=== PATIENT | female | born 1995 | race Caucasian/White ===

== ENCOUNTER 2017-03-12 13:14 | Outpatient (CLI) | payer OTHER ==
--- NOTE | 2017-03-12 14:01 | XRAY Preliminary Report ---
Exam: XR ANKLE 3 VIEW RT IMPRESSION: Lateral soft tissue swelling, but no evidence of fracture. [facility] SITE ID: [id number]
--- NOTE | 2017-03-12 14:04 | XRAY Report ---
EXAM: RIGHT ANKLE RADIOGRAPHY EXAM DATE: 03/12/2017 01:41 PM. CLINICAL HISTORY: RIGHT ANKLE TRAUMA SPRAIN. COMPARISON: None. TECHNIQUE: 3 views. FINDINGS: Bones: Normal. No fractures or bone lesions. Joints: Normal. No effusion. No subluxations. The ankle mortise is normally aligned. Soft Tissues: Lateral soft tissue swelling. No foreign body. IMPRESSION: Lateral soft tissue swelling, but no evidence of fracture. [facility] Referring Provider Line: [phone] SITE ID: [id number]
== END 2017-03-12 13:15 | disposition home or self-care (01) ==
LOC: DI 13:14
PROVIDERS: ATTEND Family Medicine
DX: S93.401A Sprain of unspecified ligament of right ankle, initial encounter (principal)

== ENCOUNTER 2017-04-27 16:30 | Emergency (ER) | payer OTHER ==
[2017-04-27 16:41] VITALS: BP 171/97
[2017-04-27 16:59] LABS: BILIRUBIN,URINE SMALL (NEGATIVE); GLUCOSE, URINE (UA) NEGATIVE (NEGATIVE); KETONES,URINE (UA) NEGATIVE (NEGATIVE); LEUKOCYTE ESTERASE, URINE SMALL (NEGATIVE); NITRITE,URINE NEGATIVE (NEGATIVE); OCCULT BLOOD,URINE LARGE (NEGATIVE); PH,URINE 6.5 PH (5.0-7.5); PROTEIN,URINE 30 mg/dL (NEGATIVE); UROBILINOGEN,URINE 0.2 (NORMAL) E.U./dL (NORMAL)
[2017-04-27 17:03] LABS: CLARITY,URINE HAZY (CLEAR); HCG UR QUAL NEGATIVE
[2017-04-27] MEDS ORDERED: SODIUM CHLORIDE 0.9% 1,000 ML IV ONE ×2 (17:05)
[2017-04-27 17:06] LABS: BASOPHILS % (AUTO) 1.6 %; EOSINOPHILS % (AUTO) 1.2 %; HGB - HEMOGLOBIN 11.5 g/dL (12.0-16.0); LYMPHOCYTES % (AUTO) 39.5 %; MEAN CORPUSCULAR HEMOGLOBIN 22.5 pg (27.0-31.0); MEAN CORPUSCULAR HGB CONC 30.9 g/dL (32.0-36.0); MEAN CORPUSCULAR VOLUME 72.8 fL (81.0-99.0); MEAN PLATELET VOLUME 8.4 fL (7.9-10.8); MONOCYTES % (AUTO) 11.8 %; NEUTROPHILS % (AUTO) 45.9 %; PLT - PLATELET COUNT 279 10^3/uL (130-450); RED BLOOD COUNT 5.12 10^6/uL (4.20-5.40); RED CELL DISTRIBUTION WIDTH 16.6 % (12.0-15.0); WHITE BLOOD COUNT 5.7 x10^3/uL (4.8-10.8)
[2017-04-27] MEDS ORDERED: LORazepam 2 MG/ML VIAL IVP STA (17:07)
[2017-04-27 17:08] LABS: BACTERIA,URINE Few /HPF (None Seen); SQUAMOUS EPITHELIAL CELL,UR MANY Squamous (<= Few); WBC CLUMPS,URINE PRESENT
[2017-04-27 17:10] LABS: ABNORMAL LYMPHS % (MANUAL) 0 %
[2017-04-27 17:18] LABS: ALBUMIN 3.8 g/dL (3.2-5.5); ALBUMIN/GLOBULIN RATIO 1.1 (1.0-2.2); BILIRUBIN,TOTAL 0.4 mg/dL (0.2-1.0); CALCIUM 8.6 mg/dL (8.5-10.3); CREATININE 0.7 mg/dL (0.4-1.0); TOTAL PROTEIN 7.3 g/dL (6.7-8.2)
--- NOTE | 2017-04-27 17:19 | ED Physician Documentation ---
History of Present Illness - Stated complaint Stated Complaint: ABD PX/FACE NUMBNESS - Chief complaint Chief Complaint: Abd Pain - History obtained from History obtained from: Patient, Friend - History of Present Illness Timing: Today Pain level max: 7 Pain level now: 5 Improved by: nothing Worsened by: movement, palpation - Additonal information Additional information: Patient is a 21-year-old female who has a history of polycystic ovarian syndrome who states that she has had fevers intermittently for the past week also had low back pain earlier this week. Had severe abdominal pain today and states that her abdomen appeared to "purple and splotchy". Pain is now improving. No vomiting or diarrhea. No constipation. Also states that the front of her face is numb. Both sides. Review of Systems Ten Systems: 10 systems reviewed and negative Constitutional: denies: Fever, Chills Cardiac: denies: Chest pain / pressure Respiratory: denies: Cough GI: denies: Nausea, Vomiting, Diarrhea Skin: denies: Rash Musculoskeletal: denies: Neck pain, Back pain Neurologic: denies: Headache PD PAST MEDICAL HISTORY - Past Medical History Past Medical History: Yes Respiratory: Asthma - Past Surgical History Past Surgical History: Yes - Present Medications Home Medications: Ambulatory Orders Medication Instructions Recorded Confirmed Ciprofloxacin HCl [Cipro] 500 mg PO BID #20 tablet 04/27/17 - Allergies Allergies/Adverse Reactions: Allergies Allergy/AdvReac Type Severity Reaction Status Date / Time kiwi Allergy Unknown Verified 11/19/14 11:42 almonds Allergy Itching Uncoded 11/19/14 11:42 - Social History Does the pt smoke?: No Smoking Status: Never smoker Does the pt drink ETOH?: No Does the pt have substance abuse?: No - Immunizations Immunizations are current?: Yes PD ED PE NORMAL - Vitals Vital signs reviewed: Yes - General General: Alert and oriented X 3, No acute distress - HEENT HEENT: Moist mucous membranes - Neck Neck: Supple, no meningeal sign - Cardiac Cardiac: RRR - Respiratory Respiratory: No respiratory distress, Clear bilaterally - Abdomen Abdomen: Soft, Non distended, Other (mild diffuse TTP without peritoneal signs.) - Back Back: No CVA TTP, No spinal TTP - Derm Derm: Warm and dry, No rash - Extremities Extremities: No calf tenderness / cord - Neuro Neuro: Alert and oriented X 3 - Psych Psych: Normal mood, Normal affect Results - Vitals Vitals: Vital Signs - 24 hr 04/27/17 16:39 Temperature 36.6 C Heart Rate 125 H Respiratory 22 Rate Blood Pressure 171/97 H O2 Saturation 100 Oxygen O2 Source Room air - Labs Labs: Laboratory Tests 04/27/17 04/27/17 04/27/17 16:50 16:59 16:59 WBC 5.7 RBC 5.12 Hgb 11.5 L Hct 37.3 MCV 72.8 L MCH 22.5 L MCHC 30.9 L RDW 16.6 H Plt Count 279 MPV 8.4 Neut # Not Reportable Lymph # Not Reportable [place] # Not Reportable Eos # Not Reportable Baso # Not Reportable Absolute Nucleated RBC Not Reportable Total Counted 100 Band Neuts % (Manual) 4 Abnorm Lymph % (Manual) 0 Myelocytes % 1 H Nucleated RBC % Not Reportable Neutrophils # (Manual) 2.7 Lymphocytes # (Manual) 2.6 Monocytes # (Manual) 0.3 Eosinophils # (Manual) 0.1 Basophils # (Manual) 0.0 Differential Comment MANUAL DIFFERENTIAL Manual Slide Review Indicated Platelet Estimate NORMAL (130-450,000) Platelet Morphology NORMAL APPEARANCE RBC Morph Micro Appear 1+ POLYCHROMASIA Sodium 138 Potassium 3.0 L Chloride 103 Carbon Dioxide 24 Anion Gap 11.0 BUN 8 Creatinine 0.7 Estimated GFR (MDRD) 105 Glucose 110 H Calcium 8.6 Total Bilirubin 0.4 AST 45 H ALT 36 Alkaline Phosphatase 77 Total Protein 7.3 Albumin 3.8 Globulin 3.5 Albumin/Globulin Ratio 1.1 Lipase 17 L Urine Color YELLOW Urine Clarity HAZY Urine pH 6.5 Ur Specific [place] 1.020 Urine Protein 30 H Urine Glucose (UA) NEGATIVE Urine Ketones NEGATIVE Urine Occult Blood LARGE H Urine Nitrite NEGATIVE Urine Bilirubin SMALL H Urine Urobilinogen 0.2 (NORMAL) Ur Leukocyte Esterase SMALL H Urine RBC 6-10 H Urine WBC 11-25 H Urine WBC Clumps PRESENT Ur Squamous Epith Cells MANY Squamous H Urine Bacteria Few Ur Microscopic Review INDICATED Urine Culture Comments NOT INDICATED Urine HCG, Qual NEGATIVE PD MEDICAL DECISION MAKING - ED course Complexity details: reviewed results, re-evaluated patient, considered differential, d/w patient ED course: Patient is a 21-year-old female who presents to the emergency department with what appears to be anxiety and pyelonephritis. Ativan resolved her facial numbness and will place on antibiotics for the pyelonephritis. Given IV Rocephin here. Abdomen is soft, nontender nondistended on serial exam. She is well-appearing, nontoxic. Afebrile. Tolerating p.o. without difficulty. Patient counseled regarding signs and symptoms for which I believe and urgent re -evaluation would be necessary. Patient with good understanding of and agreement to plan and is comfortable going home at this time This document was made in part using voice recognition software. While efforts are made to proofread this document, sound alike and grammatical errors may occur. Departure - Departure Disposition: 01 Home, Self Care Clinical Impression: Pyelonephritis, Hypokalemia Condition: Good Instructions: ED Kidney Infec Female Follow-Up: Armando Mitchell MD [Primary Care Provider] - Within 1 week Prescriptions: Ciprofloxacin HCl [Cipro] 500 mg PO BID #20 tablet Comments: Take all antibiotics until gone. Return if you worsen. Discharge Date/Time: 04/27/17 18:28
[2017-04-27] MEDS ORDERED: POTASSIUM BICARB 25 MEQ TABLET PO STA (17:21)
[2017-04-27 17:34] LABS: BAND NEUTROPHILS % (MANUAL) 4 %; EOSINOPHILS # (MANUAL) 0.1 10^3/uL (0-0.7); LYMPHOCYTES # (MANUAL) 2.6 10^3/uL (1.5-3.5); LYMPHOCYTES % (MANUAL) 45 %; MONOCYTES # (MANUAL) 0.3 10^3/uL (0.0-1.0); MYELOCYTES % (MANUAL) 1 %; NEUTROPHILS # (MANUAL) 2.7 10^3/uL (1.5-6.6); NEUTROPHILS % (MANUAL) 43 %
[2017-04-27 17:35] LABS: DIFFERENTIAL COMMENT MANUAL DIFFERENTIAL; PLATELET ESTIMATE, MANUAL NORMAL (130-450,000) (NORMAL); PLATELET MORPHOLOGY NORMAL APPEARANCE (NORMAL)
[2017-04-27] MEDS ORDERED: cefTRIAXone 1 GM VIAL IVP STA (17:42)
== END 2017-04-27 18:28 | disposition home or self-care (01) ==
LOC: ED 16:30
DX: N12 Tubulo-interstitial nephritis, not specified as acute or chronic (principal); E87.6 Hypokalemia
CPT/HCPCS: 36415; 80053; 81001; 81025; 83690; 85025; 96374; 96375; 99283; A9270; J2060; 81003; 87086

== ENCOUNTER 2018-10-03 12:06 | Emergency (ER) | payer OTHER ==
[2018-10-03] MEDS ORDERED: ONDANSETRON 4 MG/2 ML VIAL IVP STA (12:19)
[2018-10-03] MEDS ORDERED: SODIUM CHLORIDE 0.9% 1,000 ML IV ONE (12:19)
--- NOTE | 2018-10-03 12:22 | ED Physician Documentation ---
PD HPI NVD - Stated complaint Stated Complaint: FEVER/V/D - Chief complaint Chief Complaint: Abd Pain - History obtained from History obtained from: Patient - History of Present Illness Timing - onset: How many days ago (3) Timing - duration: Days (3) Timing - details: Gradual onset (started with a cough and sore throat) Associated symptoms: Fever, Other (vomiting, nonbloody undigested food, sometimes bilious and diarrhea which is also nonbloody and watery). No: Abdominal pain Improved by: No: Eating Worsened by: Eating Similar symptoms before: Has not had sx before Recently seen: Not recently seen Review of Systems Ten Systems: 10 systems reviewed and negative Constitutional: reports: Fever Nose: reports: Rhinorrhea / runny nose, Congestion Throat: reports: Sore throat Cardiac: denies: Chest pain / pressure Respiratory: reports: Cough. denies: Dyspnea GI: reports: Nausea, Vomiting, Diarrhea. denies: Abdominal Pain, Hematemesis, Bloody / black stool Skin: denies: Rash Neurologic: denies: Generalized weakness, Focal weakness, Syncope, LOC PD PAST MEDICAL HISTORY - Past Medical History Past Medical History: Yes Respiratory: Asthma - Past Surgical History Past Surgical History: Yes - Present Medications Home Medications: Ambulatory Orders Medication Instructions Recorded Confirmed Ciprofloxacin HCl [Cipro] 500 mg PO BID #20 tablet 04/27/17 Loperamide [Imodium] 2 mg PO ONCE PRN #20 capsule 10/03/18 Ondansetron Odt [Zofran] 4 mg TL Q6H PRN #10 tablet 10/03/18 - Allergies Allergies/Adverse Reactions: Allergies Allergy/AdvReac Type Severity Reaction Status Date / Time kiwi Allergy Unknown Verified 11/19/14 11:42 almonds Allergy Itching Uncoded 11/19/14 11:42 - Social History Does the pt smoke?: No Smoking Status: Never smoker Does the pt drink ETOH?: No Does the pt have substance abuse?: No - Immunizations Immunizations are current?: Yes PD ED PE NORMAL - Vitals Vital signs reviewed: Yes - General General: Alert and oriented X 3, No acute distress - HEENT HEENT: Atraumatic - Neck Neck: Supple, no meningeal sign - Cardiac Cardiac: RRR, No murmur, No gallop, No rub - Respiratory Respiratory: No respiratory distress, Clear bilaterally - Abdomen Abdomen: Normal bowel sounds, Soft, Non tender, Non distended - Female Female : Deferred - Rectal Rectal: Deferred - Derm Derm: Normal color, Warm and dry, No rash - Extremities Extremities: No deformity - Neuro Neuro: Alert and oriented X 3 Eye Opening: Spontaneous Motor: Obeys Commands Verbal: Oriented GCS Score: 15 - Psych Psych: Normal mood, Normal affect Results - Vitals Vitals: Vital Signs - 24 hr 10/03/18 10/03/18 10/03/18 12:11 13:19 14:12 Temperature 37.5 C Heart Rate 134 H 85 98 Respiratory 18 20 18 Rate Blood Pressure 149/98 H 150/87 H 152/98 H O2 Saturation 100 100 99 10/03/18 15:17 Temperature Heart Rate 74 Respiratory 16 Rate Blood Pressure 131/78 H O2 Saturation 99 Oxygen O2 Source Room air PD MEDICAL DECISION MAKING - ED course Complexity details: re-evaluated patient, considered differential, d/w patient ED course: DDx - viral gastroenteritis, colitis, food poisoning, dysentery, appendicitis, diverticulitis, viral syndrome. 23 y/o F with nausea, vomiting, diarrhea, congestion, cough, sore throat. Soft nontender abdomen but per pt unable to control nausea, vomiting and diarrhea. Nonbloody stool and vomit. No fever here but reports temp of 101 at home. No risk factors -no travel, antibiotics, hospitalizations, pt not immunocompromised. She was given fluids, antiemetics and imodium here and is now tolerating fluids. She did get anxious after compazine thus was given a dose of compazine. Now is feeling markedly improved. Her HR on recheck by me and nurse is 84 though nurse did not record it in the chart. Doubt significant bacterial illness given benign abdomen and lack of risk factors. No abdominal tenderness to suggest appendicitis or diverticulitis. Pt to continue supportive care at home with antiemetics and antidiarrheals. I do not feel that emergent imaging or labs or antibiotics are indicated at this time. Departure - Departure Disposition: 01 Home, Self Care Clinical Impression: Gastroenteritis Condition: Stable Record reviewed to determine appropriate education?: Yes Instructions: ED Gastroenteritis Viral Follow-Up: LOPEZ GIRARD MD [Primary Care Provider] - Prescriptions: Loperamide [Imodium] 2 mg PO ONCE PRN #20 capsule PRN Reason: Diarrhea Ondansetron Odt [Zofran] 4 mg TL Q6H PRN #10 tablet PRN Reason: Nausea / Vomiting Comments: You likely have viral gastroenteritis. Replace fluid losses with electrolyte rich fluids. Take zofran as needed for nausea/vomiting and imodium as needed for diarrhea. Return to the ED if worsening or inability to tolerate any fluids. Discharge Date/Time: 10/03/18 15:18
[2018-10-03] MEDS ORDERED: LOPERAMIDE 2 MG CAPSULE PO STA (13:13)
[2018-10-03] MEDS ORDERED: PROCHLORPERAZINE 10 MG/2 ML VIAL IVP STA (13:50)
[2018-10-03] MEDS ORDERED: diphenhydrAMINE INJ 50 MG/ML VIAL IVP STA (14:15)
[2018-10-03 15:18] VITALS: BP 131/78
== END 2018-10-03 15:18 | disposition home or self-care (01) ==
LOC: ED 12:06
DX: A08.4 Viral intestinal infection, unspecified (principal); J45.909 Unspecified asthma, uncomplicated
CPT/HCPCS: 96361; 96374; 96375; 99283; A9270; J1200

== ENCOUNTER 2018-11-23 11:35 | Emergency (ER) | payer OTHER ==
[2018-11-23] MEDS ORDERED: LORazepam 2 MG/ML VIAL IVP STA (12:29)
--- NOTE | 2018-11-23 12:32 | ED Physician Documentation ---
PD HPI FOCAL NEURO - Stated complaint Stated Complaint: SLURRED WORDS - Chief complaint Chief Complaint: General - History obtained from History obtained from: Patient - History of Present Illness Timing - onset: Yesterday (23-year-old woman with a family history of what sounds like multiple members with young dissections presents with speech difficulty since yesterday morning around 9 AM. She describes difficulty thinking and talking. Numbness to the back of the head and bilateral arm weakness with occasional forearm cramping. There is no possibility of . She denies any trouble with her legs. There is no significant headache.) Review of Systems Ten Systems: 10 systems reviewed and negative Constitutional: denies: Fever, Chills Cardiac: reports: Chest pain / pressure (Mild intermittent and not new). denies: Palpitations Respiratory: denies: Dyspnea, Cough GI: denies: Abdominal Pain, Nausea, Vomiting PD PAST MEDICAL HISTORY - Past Medical History Respiratory: Asthma - Past Surgical History Past Surgical History: Yes - Present Medications Home Medications: Ambulatory Orders Medication Instructions Recorded Confirmed Ciprofloxacin HCl [Cipro] 500 mg PO BID #20 tablet 04/27/17 Loperamide [Imodium] 2 mg PO ONCE PRN #20 capsule 10/03/18 Ondansetron Odt [Zofran] 4 mg TL Q6H PRN #10 tablet 10/03/18 - Allergies Allergies/Adverse Reactions: Allergies Allergy/AdvReac Type Severity Reaction Status Date / Time kiwi Allergy Unknown Verified 11/23/18 11:43 prochlorperazine AdvReac Unknown Verified 11/23/18 12:58 [From Compazine] almonds Allergy Itching Uncoded 11/23/18 11:43 - Social History Does the pt smoke?: No Smoking Status: Never smoker Does the pt drink ETOH?: No Does the pt have substance abuse?: No - Family History Family history: reports: Non contributory - Immunizations Immunizations are current?: Yes PD ED PE NORMAL - Vitals Vital signs reviewed: Yes - General General: Alert and oriented X 3, Other (Anxious, stuttering speech without dysphonia or actual aphasia per se.) - HEENT HEENT: PERRL, EOMI - Neck Neck: Supple, no meningeal sign, No bony TTP - Cardiac Cardiac: RRR, No murmur - Respiratory Respiratory: No respiratory distress, Clear bilaterally - Abdomen Abdomen: Normal bowel sounds, Soft, Non tender - Derm Derm: Normal color, Warm and dry - Extremities Extremities: No edema, No calf tenderness / cord - Neuro Neuro: Alert and oriented X 3, 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 Eye Opening: Spontaneous Motor: Obeys Commands Verbal: Oriented GCS Score: 15 - Psych Psych: Normal mood, Normal affect NIHSS - Time Time: 12:20 - Level of Consciousness Level of consciousness: (0) Alert, Keenly responsive LOC Questions: (0) Answers both Q's correct LOC Commands: (0) Performs both correctly - Gaze Best Gaze: (0) Normal - Visual Visual: (0) No loss - Facial Palsy Facial Palsy: (0) Normal, symmetrical movement - Motor Arms (both separate) Motor Arm (right): (1) Drift Motor Arm (left): (1) Drift - Motor Legs (both separate) Motor Leg (right): (0) No drift Motor Leg (left): (0) No drift - Limb Ataxia Limb Ataxia: (0) Absent - Sensory Sensory: (0) Normal - Best Language Best Language: (1) [id number] (More of a stuttering and slow speech than an actual aphasia.) - Dysarthria Dysarthria: (0) Normal - Extinction and Inattention (formally neg Extinction and inattention: (0) No abnormality - Total Score/Results Total Score/Result: 3 Results - Vitals Vitals: Vital Signs - 24 hr 11/23/18 11:38 Temperature 36.7 C Heart Rate 116 H Respiratory 25 H Rate Blood Pressure 188/111 H O2 Saturation 98 Oxygen O2 Source Room air - Labs Labs: Laboratory Tests 11/23/18 11/23/18 11/23/18 12:45 12:45 12:45 WBC 12.6 H RBC 5.22 Hgb 12.0 Hct 39.7 MCV 76.1 L MCH 23.0 L MCHC 30.2 L RDW 18.3 H Plt Count 369 MPV 11.0 H Neut # (Auto) 9.1 H Lymph # (Auto) 2.3 [place] # (Auto) 1.0 Eos # (Auto) 0.1 Baso # (Auto) 0.1 Absolute Nucleated RBC 0.00 Nucleated RBC % 0.0 VBG pH 7.455 H VBG pCO2 33.5 L VBG pO2 54.8 H VBG HCO3 23.0 VBG Total CO2 24.1 VBG O2 Saturation 89.9 H VBG Base Excess -0.3 Sodium 138 Potassium 4.1 Chloride 103 Carbon Dioxide 23 Anion Gap 12.0 BUN 5 L Creatinine 0.6 Estimated GFR (MDRD) 123 Glucose 114 H Calcium 9.3 Total Bilirubin 0.4 AST 35 ALT 28 Alkaline Phosphatase 85 Total Protein 7.6 Albumin 3.6 Globulin 4.0 Albumin/Globulin Ratio 0.9 L Lipase 20 L Ur Specific [place] Urine HCG, Qual Urine Opiates Screen Ur Oxycodone Screen Urine Methadone Screen Ur Propoxyphene Screen Ur Barbiturates Screen Ur Tricyclics Screen Ur Phencyclidine Scrn Ur Amphetamine Screen U Methamphetamines Scrn U Benzodiazepines Scrn Urine Cocaine Screen U Cannabinoids Screen 11/23/18 11/23/18 14:33 14:33 WBC RBC Hgb Hct MCV MCH MCHC RDW Plt Count MPV Neut # (Auto) Lymph # (Auto) [place] # (Auto) Eos # (Auto) Baso # (Auto) Absolute Nucleated RBC Nucleated RBC % VBG pH VBG pCO2 VBG pO2 VBG HCO3 VBG Total CO2 VBG O2 Saturation VBG Base Excess Sodium Potassium Chloride Carbon Dioxide Anion Gap BUN Creatinine Estimated GFR (MDRD) Glucose Calcium Total Bilirubin AST ALT Alkaline Phosphatase Total Protein Albumin Globulin Albumin/Globulin Ratio Lipase Ur Specific [place] <=1.005 Urine HCG, Qual NEGATIVE Urine Opiates Screen NEGATIVE Ur Oxycodone Screen NEGATIVE Urine Methadone Screen NEGATIVE Ur Propoxyphene Screen NEGATIVE Ur Barbiturates Screen NEGATIVE Ur Tricyclics Screen NEGATIVE Ur Phencyclidine Scrn NEGATIVE Ur Amphetamine Screen NEGATIVE U Methamphetamines Scrn NEGATIVE U Benzodiazepines Scrn POSITIVE H Urine Cocaine Screen NEGATIVE U Cannabinoids Screen POSITIVE H PD MEDICAL DECISION MAKING - ED course ED course: 23-year-old woman with word finding difficulties, stuttering speech, and bilateral arm weakness associated with cramping and flexor posture occasionally of the forearms, this is most consistent with a psychosomatic/anxiety component. She has a strong family history for dissections though. Advanced imaging was done with CT angiography of the head neck without pertinent positive findings. She had some improvement after Ativan and complete improvement after Haldol over although she did have some akathisia with Haldol which was treated with Benadryl. On reexamination at 4 PM prior to discharge her speech was completely normal as was her strength in both upper extremities and she felt back to normal. Departure - Departure Disposition: 01 Home, Self Care Clinical Impression: Arm weakness, Difficulty with speech Condition: Good Record reviewed to determine appropriate education?: Yes Instructions: ED Weakness [facility]O Comments: As discussed the pattern of the symptoms and the resolution with medications is most consistent with a psychosomatic episode. Return for any new or worsening symptoms. If symptoms are recurrent or persistent talk with your doctor about neurology and psychology referrals. Your blood pressure was elevated today on check into the emergency department. This does not mean that you have hypertension, it is a common phenomenon to come to the emergency department and have elevated blood pressure. I recommend that you see your primary care physician within the week to have it rechecked when you are feeling better. Forms: Activity restrictions
[2018-11-23] MEDS ORDERED: IOVERSOL 320 100 ML VIAL IVP ONE ×2 (12:43→16:37)
[2018-11-23 12:52] LABS: BASOPHILS # (AUTO) 0.1 10^3/uL (0.0-0.1); BASOPHILS % (AUTO) 0.4 %; EOSINOPHILS # (AUTO) 0.1 10^3/uL (0.0-0.7); EOSINOPHILS % (AUTO) 0.8 %; LYMPHOCYTES # (AUTO) 2.3 10^3/uL (1.5-3.5); MEAN CORPUSCULAR HGB CONC 30.2 g/dL (32.0-36.0); MEAN CORPUSCULAR VOLUME 76.1 fL (81.0-99.0); MONOCYTES % (AUTO) 7.8 %; NEUTROPHILS # (AUTO) 9.1 10^3/uL (1.5-6.6); NEUTROPHILS % (AUTO) 72.4 %; PLT - PLATELET COUNT 369 10^3/uL (130-450); RED BLOOD COUNT 5.22 10^6/uL (4.20-5.40); RED CELL DISTRIBUTION WIDTH 18.3 % (12.0-15.0); WHITE BLOOD COUNT 12.6 x10^3/uL (4.8-10.8)
[2018-11-23 12:53] LABS: VBG PCO2 33.5 mmHg (41-51); VBG PH 7.455 (7.31-7.41); VBG PO2 54.8 mmHg (25-47); VBG TOTAL CO2 24.1 mmol/L (24-29)
[2018-11-23 12:54] LABS: VBG BASE EXCESS -0.3 mmol/L (-2 - +2)
[2018-11-23 13:12] LABS: ALBUMIN 3.6 g/dL (3.2-5.5); ALBUMIN/GLOBULIN RATIO 0.9 (1.0-2.2); BILIRUBIN,TOTAL 0.4 mg/dL (0.2-1.0); CALCIUM 9.3 mg/dL (8.5-10.3); CREATININE 0.6 mg/dL (0.4-1.0); TOTAL PROTEIN 7.6 g/dL (6.7-8.2)
[2018-11-23] MEDS ORDERED: HALOPERIDOL 5 MG/ML VIAL IVP ONE (14:20)
--- NOTE | 2018-11-23 14:44 | CT Report ---
Reason: Fam hx young dissections, CP, weak, aphasia Procedure Date: 11/23/2018 Accession Number: [id number] / [id number] Procedure: CT - ANGIO HEAD W/WO CPT Code: FULL RESULT: EXAM: CT ANGIOGRAM HEAD. CT SCAN OF THE HEAD WITHOUT AND WITH CONTRAST. EXAM DATE: 11/23/2018 01:49 PM CLINICAL HISTORY: Chest pain, weakness and aphasia. COMPARISON: NECK ANGIO 11/23/2018 1:40 PM. TECHNIQUE: - CT Scan Head: Using a multidetector scanner, axial images were acquired from the foramen magnum to the skull vertex prior to and following contrast administration. - CT Angiogram: Using a multidetector scanner, high-resolution axial images were acquired from the skull base through vertex following rapid infusion of intravenous contrast. Reformats: Multiplanar MIP reformats were reconstructed. Nascet criteria used for stenosis measurement. IV Contrast: Optiray 320 80ML. In accordance with CT protocol optimization, one or more of the following dose reduction techniques were utilized for this exam: automated exposure control, adjustment of mA and/or KV based on patient size, or use of iterative reconstructive technique. FINDINGS: Brain CT without contrast: Unremarkable CT appearance of the brain. No evidence for atrophy, hydrocephalus, hemorrhage, stroke or mass. Intact calvarium. No acute sinus or mastoid disease. Brain CT with IV contrast: No abnormal enhancement. Head CT angiogram: No CTA evidence of intracranial large artery flow-limiting stenosis, occlusion or filling defect. Patent anterior communicating artery and posterior communicating arteries. No evidence for cerebral aneurysm or major dural venous sinus thrombus. IMPRESSION: CT Head: No acute intracranial abnormality. Specifically, no evidence of acute infarct, hemorrhage, or mass lesion. No abnormal enhancement. CTA Head: Normal CTA of the head. No significant vascular stenosis, dissection, or aneurysm. Note: These findings do not preclude the possibility of small or acute ischemic infarct for which a brain MRI is more sensitive. [facility]
--- NOTE | 2018-11-23 14:56 | CT Report ---
Reason: Fam hx young dissections, CP, weak, aphasia Procedure Date: 11/23/2018 Accession Number: [id number] / [id number] Procedure: CT - ANGIO NECK W CPT Code: FULL RESULT: EXAM: CT ANGIOGRAM NECK EXAM DATE: 11/23/2018 01:49 PM. CLINICAL HISTORY: Chest pain, weakness and aphasia. Reported family history of "dissection." COMPARISON: None. TECHNIQUE: Routine axial helical imaging was performed from the skull base through the aortic arch. Reconstructions: Routine multiplanar 3D MIP reconstructions. IV Contrast: Optiray 320 80ML. Evaluation of arterial stenosis is based on a NASCET method of measurement. In accordance with CT protocol optimization, one or more of the following dose reduction techniques were utilized for this exam: automated exposure control, adjustment of mA and/or KV based on patient size, or use of iterative reconstructive technique. FINDINGS: The origins of the great vessels are patent. No proximal subclavian artery stenosis. Normal CT appearance of the cervical vertebral and carotid arteries. No evidence for acute abnormality, stenosis or atherosclerosis. No evidence for dissection or aneurysm. IMPRESSION: Normal neck CT angiogram. No hemodynamically significant stenoses. [facility]
[2018-11-23 14:57] LABS: MUDS CUTOFF CONCENTRATIONS CUTOFF CONC BELOW:
[2018-11-23] MEDS ORDERED: diphenhydrAMINE INJ 50 MG/ML VIAL IVP STA (15:02)
[2018-11-23 15:10] LABS: HCG UR QUAL NEGATIVE
[2018-11-23 15:11] LABS: AMPHETAMINE SCREEN,URINE NEGATIVE (NEGATIVE); BENZODIAZEPINES SCREEN, URINE POSITIVE (NEGATIVE); COCAINE SCREEN URINE NEGATIVE (NEGATIVE); METHADONE SCREEN, URINE NEGATIVE (NEGATIVE); METHAMPHETAMINES SCREEN, URINE NEGATIVE (NEGATIVE); OPIATE SCREEN, URINE NEGATIVE (NEGATIVE); OXYCODONE SCREEN, URINE NEGATIVE (NEGATIVE); PROPOXYPHENE SCREEN, URINE NEGATIVE (NEGATIVE); TRICYCLIC ANTIDEPRESSANT,URINE NEGATIVE (NEGATIVE)
[2018-11-23 16:23] VITALS: BP 146/95
== END 2018-11-23 16:04 | disposition home or self-care (01) ==
LOC: ED 11:35
DX: R47.89 Other speech disturbances (principal); R29.898 Other symptoms and signs involving the musculoskeletal system; R25.2 Cramp and spasm; G25.71 Drug induced akathisia; T43.4X5A Adverse effect of butyrophenone and thiothixene neuroleptics, initial encounter; Y92.538 Other ambulatory health services establishments as the place of occurrence of the external cause; R03.0 Elevated blood-pressure reading, without diagnosis of hypertension; Z82.49 Family history of ischemic heart disease and other diseases of the circulatory system
CPT/HCPCS: 36415; 70496; 70498; 80053; 81025; 82803; 83690; 85025; 96374; 96375; 99284; J1200; J2060; Q9967; 80306

== ENCOUNTER 2020-07-09 16:40 | Outpatient (CLI) | payer OTHER | END 2020-07-09 16:41 | disposition critical access hospital (66) | LOC: EMS 16:40 | PROVIDERS: ATTEND Registered Nurse | DX: R56.9 Unspecified convulsions (principal) | CPT/HCPCS: A0425; A0429 ==

== ENCOUNTER 2020-07-09 16:59 | Emergency (ER) | payer OTHER ==
[2020-07-09] MEDS ORDERED: SODIUM CHLORIDE 0.9% 1,000 ML IV STA (17:19)
--- NOTE | 2020-07-09 17:21 | ED Physician Documentation ---
History of Present Illness - Stated complaint Stated Complaint: SZ - Chief complaint Chief Complaint: Neuro - Additonal information Additional information: 24-year-old female presents the emergency department for evaluation of a reported seizure at home. This afternoon she had a general tonic seizure that lasted 2 to 3 minutes. There is a very brief postictal phase followed by a repeat seizure that lasted again 2 to 3 minutes. Patient states that on average she has these episodes once a week and has for many many years. She has never been on any antiepileptics. In the past she has been seen by Dr. Long a neurologist through [place] and the [facility]. He had in the past ordered an MRI with and without contrast. Results of that are unknown. The patient did see her primary care provider yesterday and was again referred to neurology. Patient reports that her doctors have told her she is not having seizures but is rather having migraines which she does not believe to be true. Patient reports that after these shaking episodes she speaks in stuttering halted words and often has bilateral arm and leg weakness for a few days. That is present at this time. Medications: Albuterol, Alvesco. Patient denies alcohol drug or tobacco use. Review of Systems Constitutional: denies: Fever, Chills Eyes: denies: Loss of vision, Decreased vision Ears: reports: Reviewed and negative Nose: reports: Reviewed and negative Throat: reports: Reviewed and negative Cardiac: reports: Reviewed and negative Respiratory: reports: Reviewed and negative GI: reports: Reviewed and negative : reports: Reviewed and negative Skin: reports: Reviewed and negative Musculoskeletal: reports: Reviewed and negative Neurologic: reports: Seizure PD PAST MEDICAL HISTORY - Past Medical History Respiratory: Asthma - Past Surgical History Past Surgical History: Yes - Present Medications Home Medications: Ambulatory Orders Medication Instructions Recorded Confirmed Ciprofloxacin HCl [Cipro] 500 mg PO BID #20 tablet 04/27/17 Loperamide [Imodium] 2 mg PO ONCE PRN #20 capsule 10/03/18 Ondansetron Odt [Zofran] 4 mg TL Q6H PRN #10 tablet 10/03/18 - Allergies Allergies/Adverse Reactions: Allergies Allergy/AdvReac Type Severity Reaction Status Date / Time kiwi Allergy Unknown Verified 11/23/18 11:43 metformin Allergy Unknown Verified 07/09/20 17:06 prochlorperazine AdvReac Unknown Verified 11/23/18 12:58 [From Compazine] almonds Allergy Itching Uncoded 11/23/18 11:43 - Social History Does the pt smoke?: No Smoking Status: Never smoker Does the pt drink ETOH?: No Does the pt have substance abuse?: No - Immunizations Immunizations are current?: Yes PD ED PE EXPANDED - General General: Alert, No acute distress, Well developed/nourished - HEENT HEENT: Other (Unable to track movement with eyes) - Eyes Eyes: PERRL, Normal accommodation - Neck Neck: No: Stiff neck, Adenopathy - Cardiac Cardiac: Regular Rate, Radial strong equal, Pedal strong equal, Cap refill < 2 sec - Respiratory Respiratory: Clear to ausultation rosi. No: Distress, Labored - Abdomen Abdomen: Normal Bowel sounds. No: Tender to palpation - Derm Derm: Normal color. No: Emboli, Bruising - Extremities Extremities: Normal, Other (Generalized weakness bilateral upper and lower extremities able to raise arms and legs off bed but not against resistance.). No: Deformity, Tenderness - Neuro Neuro: Alert and Oriented X 3, CNII-XII intact. No: Normal Speech (Stuttered halting speech.), Normal speech - GCS Eye Opening: Spontaneous Motor: Obeys Commands Verbal: Oriented Total: 15 Results - Vitals Vitals: Vital Signs - 24 hr 07/09/20 07/09/20 17:06 19:29 Temperature 37.5 C Heart Rate 125 H 97 Respiratory 20 18 Rate Blood Pressure 167/97 H 143/94 H O2 Saturation 100 99 Oxygen O2 Source Room air - Labs Labs: Laboratory Tests 07/09/20 07/09/20 07/09/20 17:31 17:31 17:31 WBC 11.6 H RBC 4.98 Hgb 12.8 Hct 41.1 MCV 82.5 MCH 25.7 L MCHC 31.1 L RDW 14.7 Plt Count 305 MPV 10.2 Neut # (Auto) 8.6 H Lymph # (Auto) 1.9 Holmes # (Auto) 0.9 Eos # (Auto) 0.1 Baso # (Auto) 0.1 Absolute Nucleated RBC 0.00 Nucleated RBC % 0.0 Sodium 135 Potassium 3.0 L Chloride 101 Carbon Dioxide 24 Anion Gap 10.0 BUN 9 Creatinine 0.7 Estimated GFR (MDRD) 102 Glucose 149 H Lactic Acid Calcium 8.7 Total Bilirubin 0.6 AST 27 ALT 27 Alkaline Phosphatase 70 Total Protein 6.9 Albumin 3.6 Globulin 3.3 Albumin/Globulin Ratio 1.1 Lipase 24 Serum HCG, Qual NEGATIVE Urine Opiates Screen Ur Oxycodone Screen Urine Methadone Screen Ur Propoxyphene Screen Ur Barbiturates Screen Ur Tricyclics Screen Ur Phencyclidine Scrn Ur Amphetamine Screen U Methamphetamines Scrn U Benzodiazepines Scrn Urine Cocaine Screen U Cannabinoids Screen 07/09/20 07/09/20 18:35 19:31 WBC RBC Hgb Hct MCV MCH MCHC RDW Plt Count MPV Neut # (Auto) Lymph # (Auto) Holmes # (Auto) Eos # (Auto) Baso # (Auto) Absolute Nucleated RBC Nucleated RBC % Sodium Potassium Chloride Carbon Dioxide Anion Gap BUN Creatinine Estimated GFR (MDRD) Glucose Lactic Acid 1.7 Calcium Total Bilirubin AST ALT Alkaline Phosphatase Total Protein Albumin Globulin Albumin/Globulin Ratio Lipase Serum HCG, Qual Urine Opiates Screen NEGATIVE Ur Oxycodone Screen NEGATIVE Urine Methadone Screen NEGATIVE Ur Propoxyphene Screen NEGATIVE Ur Barbiturates Screen NEGATIVE Ur Tricyclics Screen NEGATIVE Ur Phencyclidine Scrn NEGATIVE Ur Amphetamine Screen NEGATIVE U Methamphetamines Scrn NEGATIVE U Benzodiazepines Scrn NEGATIVE Urine Cocaine Screen NEGATIVE U Cannabinoids Screen NEGATIVE - Rads (name of study) CT head Radiology: Final report received (No acute intracranial finding) PD MEDICAL DECISION MAKING - ED course Complexity details: reviewed results, re-evaluated patient, considered differential, d/w patient ED course: 24 year old female presents to the ED with reported 2 seizure episodes today. Both 2-3 minutes, desccribed as tonic clonic. She is currently with weakness if all 4 extremities and halting stuttered speech which she reports is normal after her episodes and can last 1-3 days. Previously seen by Dr. Long at [facility]. He had recommended NRI in the past, unclear if these images have been completed. Pt screening labs unremarkable sparing hypokalemia. Potassium supplemented. CT head without acute intracranial abnormality. 1644: I spoke with Dr. Crespo neurologist at [facility]. He does recommend pt to have MRI and possible observation, unfortunately he is not able to have pt admitted to [facility]. Will call transfer [facility]/ [place] to help arrange consultation and possibel transfer. PT emains stable. her speech and upper extermity weakness is improving 1999: I have spoken with the [place] transfer physician and he is looking for a bed. However when I was discussing plan of care with patient and she reported that she is feeling better and she no longer wishes to be transferred for further evaluation of her seizure-like disorder. She is requesting to be discharged home and feels that she will try and follow-up with neurology as an outpatient. We discussed that she is free to return to the emergency department at any time especially she has a recurrence of the seizures. No new medications will be initiated today. Emergent return precautions were discussed Departure - Departure Disposition: Home, Self Care Clinical Impression: Seizure-like activity Condition: Stable Record reviewed to determine appropriate education?: Yes Comments: You were seen today for reported seizure-like activity at home. In discussing your case with your previous neurologist the MRI that was done did not show any worrisome findings. The CT scan today was essentially normal as well as your screening labs and electrolytes. The only abnormality was a low potassium level for which we gave you potassium here in the ER. Your primary doctor yesterday made a referral for you to the neurologist. It is important to call them tomorrow to discuss this ED visit and request a sooner appointment. If at any point you have a return of your seizure activity, feel unsafe or feel that your symptoms are occurring with increased frequency please return to the ER for a second evaluation
[2020-07-09 17:41] LABS: BASOPHILS # (AUTO) 0.1 10^3/uL (0.0-0.1); BASOPHILS % (AUTO) 0.5 %; EOSINOPHILS # (AUTO) 0.1 10^3/uL (0.0-0.7); EOSINOPHILS % (AUTO) 0.7 %; HCT - HEMATOCRIT 41.1 % (37.0-47.0); HGB - HEMOGLOBIN 12.8 g/dL (12.0-16.0); LYMPHOCYTES # (AUTO) 1.9 10^3/uL (1.5-3.5); LYMPHOCYTES % (AUTO) 16.7 %; MEAN CORPUSCULAR HEMOGLOBIN 25.7 pg (27.0-31.0); MEAN CORPUSCULAR HGB CONC 31.1 g/dL (32.0-36.0); MEAN CORPUSCULAR VOLUME 82.5 fL (81.0-99.0); MEAN PLATELET VOLUME 10.2 fL (7.9-10.8); MONOCYTES # (AUTO) 0.9 10^3/uL (0.0-1.0); MONOCYTES % (AUTO) 7.4 %; NEUTROPHILS # (AUTO) 8.6 10^3/uL (1.5-6.6); NEUTROPHILS % (AUTO) 74.4 %; PLT - PLATELET COUNT 305 10^3/uL (130-450); RED BLOOD COUNT 4.98 10^6/uL (4.20-5.40); RED CELL DISTRIBUTION WIDTH 14.7 % (12.0-15.0); WHITE BLOOD COUNT 11.6 x10^3/uL (4.8-10.8)
[2020-07-09 17:52] LABS: ALBUMIN 3.6 g/dL (3.2-5.5); ALBUMIN/GLOBULIN RATIO 1.1 (1.0-2.2); BILIRUBIN,TOTAL 0.6 mg/dL (0.2-1.0); CALCIUM 8.7 mg/dL (8.5-10.3); CREATININE 0.7 mg/dL (0.4-1.0); TOTAL PROTEIN 6.9 g/dL (6.7-8.2)
[2020-07-09 18:01] LABS: HCG,QUALITATIVE BLOOD NEGATIVE
[2020-07-09] MEDS ORDERED: POTASSIUM CHLORIDE 20 MEQ TABLET PO STA (18:22)
--- NOTE | 2020-07-09 18:26 | CT Report ---
PROCEDURE: HEAD WO INDICATIONS: Seizure TECHNIQUE: Noncontrast 4.5 mm thick angled axial sections acquired from the foramen magnum to the vertex. For r adiation dose reduction, the following was used: automated exposure control, adjustment of mA and/or kV according to patient size. COMPARISON: None. FINDINGS: Image quality: Excellent. CSF spaces: Basal cisterns are patent. No extra-axial fluid collections. Ventricles are normal in size and shape. Brain: No midline shift. No intracranial masses or hemorrhage. Valle-white matter interface is norm al. Skull and face: Calvarium and visualized facial bones are intact, without suspicious lesions. Sinuses: Visualized sinuses and mastoids are clear. IMPRESSION: No acute intracranial finding. Reviewed by: Keshawn Curry MD on 07/09/2020 6:25 PM PDT Approved by: Keshawn Curry MD on 07/09/2020 6:25 PM PDT Station ID: [id number]
[2020-07-09 18:37] LABS: MUDS CUTOFF CONCENTRATIONS CUTOFF CONC BELOW:
[2020-07-09 19:12] LABS: AMPHETAMINE SCREEN,URINE NEGATIVE (NEGATIVE); BARBITURATE SCREEN,UR NEGATIVE (NEGATIVE); BENZODIAZEPINES SCREEN, URINE NEGATIVE (NEGATIVE); COCAINE SCREEN URINE NEGATIVE (NEGATIVE); METHADONE SCREEN, URINE NEGATIVE (NEGATIVE); METHAMPHETAMINES SCREEN, URINE NEGATIVE (NEGATIVE); OPIATE SCREEN, URINE NEGATIVE (NEGATIVE); OXYCODONE SCREEN, URINE NEGATIVE (NEGATIVE); PROPOXYPHENE SCREEN, URINE NEGATIVE (NEGATIVE); THC CANNABINOID SCREEN, URINE NEGATIVE (NEGATIVE); TRICYCLIC ANTIDEPRESSANT,URINE NEGATIVE (NEGATIVE)
[2020-07-09 19:30] VITALS: BP 143/94
== END 2020-07-09 20:34 | disposition home or self-care (01) ==
LOC: EDUNIT# → EDBD → ED 16:59 → SUPCPDRO 16:59 → ED 20:34
DX: R56.9 Unspecified convulsions (principal); R47.89 Other speech disturbances; R53.1 Weakness; R29.898 Other symptoms and signs involving the musculoskeletal system; E87.6 Hypokalemia
CPT/HCPCS: 36415; 70450; 80053; 80306; 83605; 83690; 84703; 85025; 96360; 99284; A9270